=== PATIENT | male | born 1960 | race African-American/Black ===

== ENCOUNTER 2019-12-27 20:34 | Emergency (ER) | payer BC ==
[~2019-12-27] VITALS: Ht 188 cm; Wt 87.1 kg
[2019-12-27 20:43] VITALS: BP 166/93
--- NOTE | 2019-12-27 21:05 | NUR ---
DIANNA RN: PT C/O ACUTE URINARY RETENTION FOR 3 HOURS. STATES SIMILAR EPISODE 2 YEARS AGO AFTER DRINKING TOO MUCH. PT VISABLY UNCOMFORTABLE AND PACING. LOWER ABD DISTENDED AND FIRM. GARRETT CATH PLACED WITH 400 ML INITIAL OUTPUT NOTED. PT STATES IMMEDIATE RELIEF AFTER GARRETT. CALL LIGHT IN REACH. CHART UP FOR ERP TO EVAL.
--- NOTE | 2019-12-27 21:46 | NUR ---
FLOJACKLYN RN: ATTEMPTING TO D/C PT. PT REQUESTING TO WAIT 15 MINUTES MORE BEFORE D/C. PT DOES NOT WANT GARRETT TO BE LEFT IN. URINE NO LONGER DRAINING IN GARRETT. PT TAKING PO FLUIDS AT THIS TIME AND RN WILL REASSESS PT IN 15 MINUTES. CALL LIGHT IN REACH.
--- NOTE | 2019-12-27 22:10 | NUR ---
DIANNA RN:PT REQUESTING TO DELAY D/C HOME UNTIL HE CAN URINATE ON HIS OWN. GARRETT CATH D/C'D. PO FLUIDS GIVEN. CALL LIGHT IN REACH. Addendum: 12/27/19 at 2213 by SFISK DIANNA RN:PT REQUESTING TO DELAY D/C HOME UNTIL HE CAN URINATE ON HIS OWN. BLADDER SCAN SHOWED 15 ML. GARRETT CATH D/C'D. PO FLUIDS GIVEN. CALL LIGHT IN REACH.
--- NOTE | 2019-12-27 22:48 | NUR ---
Patient/Caregiver given discharge instructions and they have confirmed that they understand the instructions. Patient ambulatory with steady gait.
== END 2019-12-27 22:55 | disposition home or self-care (01) ==
LOC: ED 22:54
DX: R33.9 Retention of urine, unspecified (principal)
CPT/HCPCS: 51702; 99284